=== PATIENT | male | born 1965 | race Caucasian/White ===

== ENCOUNTER → 2017-08-14 | Outpatient (CLI) | payer BC ==
[2015-12-13 09:39] VITALS: BP 142/87
[~2017-08-14] MED LIST: CETI10TA16 PO; FLUT12AE IH; HYDR12.58 PO; OMEP20TA8 PO
--- NOTE | 2017-08-14 10:29 | KCIC ---
CT MAXILLOFACIAL WO CONTRAST Indication: Congestion. Difficulty breathing. Recurrent acute sinusitis. History of broken nose. . Comparison: No comparison is available. Contrast: None Exposure: One or more of the following individualized dose reduction techniques were utilized for this examination: 1. Automated exposure control 2. Adjustment of the mA and/or kV according to patient size 3. Use of iterative reconstruction technique. Findings: Paranasal sinuses are clear. No fluid levels are identified. Ostiomeatal units are patent. No evidence of aggressive bone destruction or acute fracture. The mastoids are clear. Orbits appear unremarkable. IMPRESSION: No CT evidence of acute sinusitis. Electronically signed by: Lobo Millan MD (08/14/2017 10:25 AM) [facility]
== END | disposition home or self-care (01) ==
LOC: KCIC CT 09:51
PROVIDERS: ATTEND Otolaryngology
DX: S02.2XXD Fracture of nasal bones, subsequent encounter for fracture with routine healing (principal); J01.90 Acute sinusitis, unspecified; R09.81 Nasal congestion; R06.00 Dyspnea, unspecified; X58.XXXD Exposure to other specified factors, subsequent encounter
CPT/HCPCS: 70486

== ENCOUNTER → 2017-08-21 | Outpatient (CLI) | payer BC ==
[2015-12-13 09:39] VITALS: BP 142/87
--- NOTE | 2017-08-21 09:37 | CARD ---
APPROVED REPORT EXAM: Two-dimensional and M-mode echocardiogram with Doppler and color Doppler. Other Information Quality : Average Rhythm : Bradycardia INDICATION Murmur Bradycardia 2D DIMENSIONS RVDd3.2 (2.9-3.5cm)Left Atrium(2D)3.8 (1.6-4.0cm) IVSd0.8 (0.7-1.1cm)Aortic Root(2D)2.9 (2.0-3.7cm) LVDd4.9 (3.9-5.9cm)LVOT Diameter2.0 (1.8-2.4cm) PWd0.8 (0.7-1.1cm)LVDs3.1 (2.5-4.0cm) FS (%) 36.2 %SV73.7 ml LVEF(%)65.7 (>50%) Aortic Valve AoV Peak Irvin.184.3cm/sAoV VTI36.1cm AO Peak GR.13.6mmHgLVOT Peak Irvin.139.1cm/s LVOT VTI 31.44cmAO Mean GR.7mmHg AMANDO (VMAX)2.42nr6JFD (VTI)2.77cm2 AI P 1/2 Jvyx114kj Mitral Valve MV E Pzapbzov44.0cm/sMV DECEL SGIR222ci MV A Tvahcsje24.7cm/sMV NBQ49gk E/A Ratio1.4MV A Qacndscl665fh MVA (PHT)4.76cm2 TDI E/Lateral E'7.4E/Medial E'9.5 Pulmonary Valve PV Peak Beewklyn177.1cm/sPV Peak Grad.5mmHg RVOT VTI18.6cm Tricuspid Valve TR P. Uyjjmxka421li/sRAP HQRVTPUN1vkJq TR Peak Gr.82zjBgSCTW46bhWm Pulmonary Vein S1 Bntzfruf51.3cm/sD2 Bsqgvglk33.3cm/s LEFT VENTRICLE The left ventricle is normal size. There is normal left ventricular wall thickness. Left ventricle sy stolic function is normal. The Ejection Fraction is 60-65%. There is normal LV segmental wall motion. The left ventricular diastolic function and filling is normal for age. There is no ventricular septa l defect visualized. RIGHT VENTRICLE The right ventricle is normal size. The right ventricular systolic function is normal. ATRIA The left atrium size is normal. The right atrium size is normal. The interatrial septum is intact wit h no evidence for an atrial septal defect or patent foramen ovale as noted on 2-D or Doppler imaging. AORTIC VALVE The aortic valve is trileaflet. Doppler and Color Flow revealed trace to mild aortic regurgitation. T here is no significant aortic valvular stenosis. MITRAL VALVE The mitral valve is normal in structure and function. There is no mitral valve stenosis. Doppler and Color Flow revealed trace mitral regurgitation. TRICUSPID VALVE The tricuspid valve is normal in structure and function. Doppler and Color Flow revealed trace to mil d tricuspid regurgitation. The PA pressure was estimated at 24 mmHg. There is no tricuspid valve sten osis. PULMONIC VALVE The pulmonic valve is not well visualized. Doppler and Color Flow revealed no pulmonic valvular regur gitation. There is no pulmonic valvular stenosis. GREAT VESSELS The aortic root is normal in size. The ascending aorta is normal in size. Normal pulmonary venous shantell w (Doppler). The IVC is normal in size and collapses >50% with inspiration. PERICARDIAL EFFUSION There is no evidence of significant pericardial effusion. Critical Notification Critical Value: No <Conclusion> Left ventricle systolic function is normal. The Ejection Fraction is 60-65%. There is normal LV segmental wall motion.
== END | disposition home or self-care (01) ==
LOC: ECHO 08:43
PROVIDERS: ATTEND Physician Assistant
DX: R01.1 Cardiac murmur, unspecified (principal); R00.1 Bradycardia, unspecified
CPT/HCPCS: 93306